=== PATIENT | male | born 1995 | race Two or more races ===

== ENCOUNTER 2024-07-18 01:30 | Emergency (ER) | payer OTHER ==
[~2024-07-18] VITALS: Ht 175.3 cm; Wt 89.4 kg
[2024-07-18] MEDS ORDERED: CLINDAMYCIN PHOSPHATE 150 MG/ML (600mg) IM STA (03:21)
[2024-07-18] MEDS ORDERED: TRAMADOL HCL 50 MG TABLET PO STA (03:21)
[2024-07-18] MEDS ORDERED: CLINDAMYCIN PHOSPHATE 150 MG/ML (300mg) ONE (03:26)
== END 2024-07-18 03:43 | disposition home or self-care (01) ==
LOC: ER 01:31
DX: L02.32 Furuncle of buttock (principal); Z88.6 Allergy status to analgesic agent